=== PATIENT | female | born 1935 | race Caucasian/White ===

== ENCOUNTER 2016-12-14 06:19 | Inpatient (IN) | payer OTHER ==
[~2016-12-14] VITALS: Ht 167.6 cm; Wt 90.0 kg
[2016-12-14 07:14] LABS: HEMATOCRIT 41.5 % (36.0-46.0); MCH 29.3 PG (29.0-34.0); MCV 91.4 FL (83-99); MEAN PLAT.VOLUME 10.6 uM^3 (9.5-12.4); PLATELET COUNT 166 K/uL (156-360); RBC DIS.WIDTH-CV 13.4 % (11.8-14.6); RBC DIS.WIDTH-SD 45.6 % (39-53); RED BLOOD COUNT 4.54 M/uL (3.80-5.20); WHITE BLOOD COUNT 9.4 K/uL (4.1-10.2)
[2016-12-14 07:52] LABS: ALKALINE PHOSPHATASE 59 IU/L (3-129); ANION GAP 9 MEQ/L (2-14); CHLORIDE 107 MEQ/L (99-109); GFR ESTIMATE (CALCULATED) 23 mL/min/; GLUCOSE 98 mg/dL (70-99); POTASSIUM 4.1 MEQ/L (3.7-5.4); SAMPLE HEMOLYSIS CHECK 0; SAMPLE ICTERIC CHECK 0; SAMPLE LIPEMIA CHECK 0; SODIUM 142 MEQ/L (136-147); TOTAL BILIRUBIN 0.9 MG/DL (0.0-1.0); TROP-I INTERPRETATION NEGATIVE; TROPONIN-I 0.06 ng/mL (0.0-0.30); UREA NITROGEN (BUN) 26 mg/dL (9-23)
[2016-12-14 07:53] LABS: INTER. NORMALIZED RATIO 1.2; PROTHROMBIN TIME 13.4 SEC (10.2-12.9)
[2016-12-14 09:31] LABS: ADD MIUA? YES; BILIRUBIN NEGATIVE; BLOOD SMALL; COLOR YELLOW ((YELLOW)); GLUCOSE (STRIP) NEGATIVE; KETONES NEGATIVE; LEUKOCYTES NEGATIVE; NITRITE NEGATIVE; PROTEIN (STRIP) 100; SPECIFIC GRAVITY 1.015 (1.000-1.030); UROBILINOGEN 0.2 MG/DL (0.2-1.0)
[2016-12-14 09:34] LABS: BACTERIA RARE /HPF; EPITHELIAL CELLS RARE /HPF; MUCUS TRACE /LPF; RED BLOOD CELLS 0-5 /HPF (0-5); UCUL ADDED? NO; WHITE BLOOD CELLS 0-5 /HPF (0-5)
[2016-12-14] MEDS ORDERED: ERGOCALCIF50000 UNIT PO (11:14)
[2016-12-14] MEDS ORDERED: ASPIR 8181 M1 PO (11:14)
[2016-12-14] MEDS ORDERED: TENORMIN50 MG PO (11:15)
[2016-12-14] MEDS ORDERED: VITAMIN B-12500 MC5 SL (11:15)
[2016-12-14 12:50] VITALS: BP 134/67
[2016-12-14 13:00] VITALS: BP 134/67
[2016-12-14 15:10] LABS: TROP-I INTERPRETATION NEGATIVE; TROPONIN-I 0.05 ng/mL (0.0-0.30)
[2016-12-14 16:18] VITALS: BP 176/91
[2016-12-14 19:54] LABS: TROP-I INTERPRETATION NEGATIVE; TROPONIN-I 0.04 ng/mL (0.0-0.30)
[2016-12-14 20:00] VITALS: BP 133/71
[2016-12-14 23:55] VITALS: BP 137/69
[2016-12-15 03:55] VITALS: BP 137/81
[2016-12-15 04:46] LABS: HEMATOCRIT 35.7 % (36.0-46.0); MCH 29.7 PG (29.0-34.0); MCHC 32.8 G/DL (30.0-36.0); MCV 90.6 FL (83-99); MEAN PLAT.VOLUME 10.3 uM^3 (9.5-12.4); PLATELET COUNT 154 K/uL (156-360); RBC DIS.WIDTH-CV 13.2 % (11.8-14.6); RBC DIS.WIDTH-SD 43.8 % (39-53); RED BLOOD COUNT 3.94 M/uL (3.80-5.20); WHITE BLOOD COUNT 7.9 K/uL (4.1-10.2)
[2016-12-15 04:55] LABS: CHLORIDE 112 mEq/L (99-109); POTASSIUM 3.9 mEq/L (3.7-5.4); SODIUM 142 mEq/L (136-147)
[2016-12-15 04:57] LABS: GLUCOSE 90 mg/dL (70-99)
[2016-12-15 04:59] LABS: ANION GAP 9 MEQ/L (2-14)
[2016-12-15 05:01] LABS: GFR ESTIMATE (CALCULATED) 25 mL/min/
[2016-12-15 05:02] LABS: UREA NITROGEN (BUN) 22 mg/dL (9-23)
[2016-12-15 06:44] LABS: URINE TOTAL PROTEIN 133 MG/DL (0-10)
[2016-12-15 06:58] VITALS: BP 145/76
[2016-12-15 07:38] LABS: INTACT PARATHYROID HORMONE 217 pg/mL (10-69)
[2016-12-15 12:20] VITALS: BP 136/84
[2016-12-15 15:24] VITALS: BP 168/77
[2016-12-15 20:00] VITALS: BP 134/98
[2016-12-16 00:22] VITALS: BP 1401/10
[2016-12-16 04:33] VITALS: BP 165/83
[2016-12-16 06:22] LABS: ANION GAP 9 MEQ/L (2-14); CHLORIDE 109 MEQ/L (99-109); GFR ESTIMATE (CALCULATED) 27 mL/min/; GLUCOSE 96 mg/dL (70-99); POTASSIUM 3.7 MEQ/L (3.7-5.4); SAMPLE HEMOLYSIS CHECK 0; SAMPLE ICTERIC CHECK 0; SAMPLE LIPEMIA CHECK 0; SODIUM 139 MEQ/L (136-147); UREA NITROGEN (BUN) 18 mg/dL (9-23)
[2016-12-16 08:00] VITALS: BP 131/81
[2016-12-16 11:38] VITALS: BP 127/81
[2016-12-16 15:04] VITALS: BP 127/69
[2016-12-16 20:57] VITALS: BP 164/88
[2016-12-17] VITALS (7 sets, daily range): BP systolic 129–186; BP diastolic 75–94
[2016-12-17 06:10] LABS: POTASSIUM ND MEQ/L (3.7-5.4)
[2016-12-17 06:18] LABS: BASOPHIL COUNT 0.1 K/uL (0-0.1); EOSINOPHIL (%) 0.7 % (0-5); EOSINOPHIL COUNT 0.1 K/uL (0-0.3); HEMATOCRIT 42.1 % (36.0-46.0); IMMATURE GRANULOCYTE (%) 0.2 % (0.0-0.7); INSTRUMENT ABS NEUTROPHIL CT 6.2 K/uL; LYMPHOCYTE COUNT 1.1 K/uL (1.0-2.8); MCH 30.2 PG (29.0-34.0); MCV 91.5 FL (83-99); MEAN PLAT.VOLUME 10.9 uM^3 (9.5-12.4); MONOCYTE (%) 8.7 % (3-12); MONOCYTE COUNT 0.7 K/uL (0-0.8); NEUTROPHIL (%) 76.6 % (45-76); NEUTROPHIL COUNT 6.2 K/uL (1.8-6.4); PLATELET COUNT 162 K/uL (156-360); RBC DIS.WIDTH-CV 13.6 % (11.8-14.6); RBC DIS.WIDTH-SD 46.1 % (39-53); WHITE BLOOD COUNT 8.1 K/uL (4.1-10.2)
[2016-12-17 06:42] LABS: ALKALINE PHOSPHATASE 60 IU/L (3-129); CHLORIDE 107 MEQ/L (99-109); GFR ESTIMATE (CALCULATED) 31 mL/min/; GLUCOSE 87 mg/dL (70-99); SODIUM 141 MEQ/L (136-147); TOTAL BILIRUBIN 1.1 MG/DL (0.0-1.0); UREA NITROGEN (BUN) 15 mg/dL (9-23)
[2016-12-17 06:43] LABS: SAMPLE HEMOLYSIS CHECK 1; SAMPLE ICTERIC CHECK 0; SAMPLE LIPEMIA CHECK 0
[2016-12-17 08:05] LABS: POTASSIUM 4.1 MEQ/L (3.7-5.4)
[2016-12-18 03:46] VITALS: BP 176/87
[2016-12-18 06:12] LABS: BASOPHIL COUNT 0.1 K/uL (0-0.1); EOSINOPHIL (%) 2.4 % (0-5); EOSINOPHIL COUNT 0.2 K/uL (0-0.3); IMMATURE GRANULOCYTE (%) 0.1 % (0.0-0.7); INSTRUMENT ABS NEUTROPHIL CT 4.6 K/uL; LYMPHOCYTE COUNT 1.5 K/uL (1.0-2.8); MCH 29.1 PG (29.0-34.0); MCHC 32.6 G/DL (30.0-36.0); MCV 89.4 FL (83-99); MEAN PLAT.VOLUME 10.4 uM^3 (9.5-12.4); MONOCYTE (%) 10.1 % (3-12); MONOCYTE COUNT 0.7 K/uL (0-0.8); NEUTROPHIL (%) 64.9 % (45-76); NEUTROPHIL COUNT 4.6 K/uL (1.8-6.4); PLATELET COUNT 188 K/uL (156-360); RBC DIS.WIDTH-CV 13.4 % (11.8-14.6); RBC DIS.WIDTH-SD 43.9 % (39-53); RED BLOOD COUNT 4.36 M/uL (3.80-5.20); WHITE BLOOD COUNT 7.1 K/uL (4.1-10.2)
[2016-12-18 06:36] LABS: ALKALINE PHOSPHATASE 57 IU/L (3-129); ANION GAP 12 MEQ/L (2-14); CHLORIDE 105 MEQ/L (99-109); GFR ESTIMATE (CALCULATED) 31 mL/min/; GLUCOSE 101 mg/dL (70-99); POTASSIUM 3.6 MEQ/L (3.7-5.4); SAMPLE HEMOLYSIS CHECK 0; SAMPLE ICTERIC CHECK 0; SAMPLE LIPEMIA CHECK 0; SODIUM 140 MEQ/L (136-147); TOTAL BILIRUBIN 0.9 MG/DL (0.0-1.0); UREA NITROGEN (BUN) 15 mg/dL (9-23)
[2016-12-18 06:45] VITALS: BP 136/89
[2016-12-18 11:34] VITALS: BP 157/89
[2016-12-18 14:52] VITALS: BP 178/87
[2016-12-19 00:43] VITALS: BP 132/61
[2016-12-19 08:34] VITALS: BP 140/68
[2016-12-19 16:30] VITALS: BP 173/90
[2016-12-19 23:50] VITALS: BP 139/85
[2016-12-20 08:06] VITALS: BP 170/90
[2016-12-20] MEDS ORDERED: HALDOL1 MG PO (12:28)
[2016-12-20] MEDS ORDERED: CARDIZEM90 MG PO (12:28)
[2016-12-20] MEDS ORDERED: Zeasorb Antifungal T TP (13:14)
== END 2016-12-20 16:15 | DRG 683 ==
LOC: EME → EDBD 06:19 → 4EAST 10:14 → EDOF 10:14 → 5EAST 10:14 → ENRESERV 10:15 → EDOF 10:35 → ENRESERV 11:09 → 4EAST 12:28 → ENRESERV 12-17 22:54 → 5EAST 12-17 23:31
PROVIDERS: Hospitalist; Internal Medicine; Nurse Practitioner Family; Physician Assistant
DX: N17.9 Acute kidney failure, unspecified (principal); I48.91 Unspecified atrial fibrillation; L03.116 Cellulitis of left lower limb; L03.115 Cellulitis of right lower limb; B36.9 Superficial mycosis, unspecified; E21.3 Hyperparathyroidism, unspecified; E66.9 Obesity, unspecified; F03.91 Unspecified dementia, unspecified severity, with behavioral disturbance; E55.9 Vitamin D deficiency, unspecified; F05 Delirium due to known physiological condition; I12.9 Hypertensive chronic kidney disease with stage 1 through stage 4 chronic kidney disease, or unspecified chronic kidney disease; N18.3 Chronic kidney disease, stage 3 (moderate); M48.06 Spinal stenosis, lumbar region; L68.0 Hirsutism; G25.81 Restless legs syndrome; S92.511A Displaced fracture of proximal phalanx of right lesser toe(s), initial encounter for closed fracture; W19.XXXA Unspecified fall, initial encounter; Z68.32 Body mass index [BMI] 32.0-32.9, adult; Z87.891 Personal history of nicotine dependence; Z91.81 History of falling
CPT/HCPCS: 70450; 71010; 72131; 73630; 74176; 80053; 80069; 81003; 82306; 82330; 82570; 83605; 83970; 84100; 84156; 84300; 84484; 84999; 85025; 85027; 85610; 86334; 86335; 93005; 93306; 99281; 99285; J0360; J0690; J1644; J7030; J7050